=== PATIENT | female | born 1930 | race Caucasian/White ===

== ENCOUNTER 2020-05-26 18:11 | Inpatient (IN) | payer MEDICARE, MEDICAID ==
[~2020-05-26] VITALS: Ht 152.4 cm; Wt 52.2 kg
[2020-05-26 19:18] LABS: BASOPHILS % 1.1 % (0.0-2.0); EOSINOPHILS % 1.4 % (0.0-5.0); HEMATOCRIT. 39.3 % (36.0-48.0); HEMOGLOBIN. 12.8 g/dL (12.0-16.0); LYMPHOCYTES % 15.3 % (20.0-50.0); MEAN CORPUSCULAR HEMOGLOBIN 29.3 pg (28.0-32.0); MEAN CORPUSCULAR VOLUME 89.7 fL (81.0-99.0); MEAN PLATELET VOLUME 8.1 fl (7.4-10.4); MONOCYTES % 9.4 % (2.0-8.0); NEUTROPHILS % 72.8 % (40.0-76.0); PLATELET 329 x1000/uL (130-400); RED BLOOD CELL COUNT 4.39 mill/uL (4.2-5.4); RED CELL DISTRIBUTION WIDTH 16.8 % (11.6-14.6)
[2020-05-26 19:21] LABS: CLARITY URINE CLOUDY (CLEAR); COLOR URINE YELLOW (YELLOW); KETONES URINE NEGATIVE (NEGATIVE); LEUKOCYTE ESTERASE URINE 1+ (NEGATIVE); NITRITE URINE NEGATIVE (NEGATIVE); OCCULT BLOOD URINE 2+ (NEGATIVE); PH URINE 5.5 (4.5-8.0); PROTEIN URINE NEGATIVE (NEGATIVE); SPECIFIC GRAVITY URINE 1.017 (1.005-1.030)
[2020-05-26 19:24] LABS: CHLORIDE 99 mEq/L (98-107)
[2020-05-26 19:26] LABS: INR 1.1; PROTHROMBIN TIME 11.9 sec (9.6-11.0)
[2020-05-26] MEDS ORDERED: SULFAMETHOXAZOLE/TRIMETHOPRIM 800/160MG TABLET PO NR (20:00)
[2020-05-26] MEDS ORDERED: ACETAMINOPHEN 325MG TABLET PO PRN (20:45)
[2020-05-26] MEDS ORDERED: IPRATROPIUM/ALBUTEROL 0.5-3(2.5)MG/3ML NEB NEB PRN (20:45)
[2020-05-26] MEDS ORDERED: SODIUM CHLORIDE 0.9% 500 ML IV ONE (20:45)
[2020-05-26] MEDS ORDERED: ALPRAZOLAM 0.25 MG TABLET PO PRN (20:45)
[2020-05-26] MEDS ORDERED: DIPHENHYDRAMINE 50MG/ML VIAL IV PRN (20:45)
[2020-05-26] MEDS ORDERED: CLONIDINE 0.1MG TABLET PO PRN (20:45)
[2020-05-26] MEDS ORDERED: DEXTROSE 50% WATER 50ML SYRINGE IV PRN ×2 (20:45→21:00)
[2020-05-26] MEDS ORDERED: ONDANSETRON HCL 4MG/2ML INJ IV PRN (20:45)
[2020-05-26] MEDS ORDERED: LEVOFLOXACIN 500MG PREMIX 100 ML IV NR (21:00)
[2020-05-26] MEDS: METOPROLOL TARTRATE 25MG TABLET PO SCH (21:00)
[2020-05-26] MEDS ORDERED: BLOOD SUGAR DIAGNOSTIC STRIP TEST SCH (21:00)
[2020-05-26] MEDS: AMLODIPINE 2.5MG TABLET PO SCH (21:30)
[2020-05-26] MEDS: BLOOD SUGAR DIAGNOSTIC STRIP TEST SCH (22:03)
[2020-05-26] MEDS: ENOXAPARIN 30MG/0.3ML SYR SUBCUT SCH (22:10)
[2020-05-26] MEDS: INSULIN LISPRO 100 UNITS/ML SUBCUT SCH (22:10)
[2020-05-27] VITALS (7 sets, daily range): BP systolic 109–147; BP diastolic 36–61
[2020-05-27] MEDS: ACETAMINOPHEN 325MG TABLET PO PRN ×2 (06:46→21:05)
[2020-05-27] MEDS: GLIPIZIDE 5MG TABLET PO SCH ×2 (07:00→08:56)
[2020-05-27] MEDS: LEVOTHYROXINE SODIUM 100MCG TABLET PO SCH ×2 (07:00→08:56)
[2020-05-27] MEDS: BLOOD SUGAR DIAGNOSTIC STRIP TEST SCH ×4 (07:04→21:17)
[2020-05-27] MEDS: CLOPIDOGREL 75MG TABLET PO SCH (08:55)
[2020-05-27] MEDS: AMLODIPINE 2.5MG TABLET PO SCH ×2 (08:55→21:00)
[2020-05-27] MEDS: CHOLECALCIFEROL (D3) 1000 UNIT TABLET PO SCH (08:55)
[2020-05-27] MEDS: FOLIC ACID 1MG TABLET PO SCH (08:56)
[2020-05-27] MEDS: INSULIN LISPRO 100 UNITS/ML SUBCUT SCH ×4 (08:59→21:00)
[2020-05-27] MEDS: METOPROLOL TARTRATE 25MG TABLET PO SCH ×2 (09:00→21:00)
[2020-05-27] MEDS: DONEPEZIL HCL 10MG TABLET PO SCH (09:00)
[2020-05-27] MEDS: LEVOFLOXACIN 250MG PREMIX 50 ML IV SCH (21:11)
[2020-05-27] MEDS: ENOXAPARIN 30MG/0.3ML SYR SUBCUT SCH (21:24)
[2020-05-28] VITALS: BP 131/98
[2020-05-28 04:00] VITALS: BP 155/43
[2020-05-28] MEDS: BLOOD SUGAR DIAGNOSTIC STRIP TEST SCH ×4 (07:20→20:46)
[2020-05-28 08:00] VITALS: BP 143/43
[2020-05-28] MEDS: METOPROLOL TARTRATE 25MG TABLET PO SCH ×2 (09:00→20:37)
[2020-05-28] MEDS: CHOLECALCIFEROL (D3) 1000 UNIT TABLET PO SCH (09:44)
[2020-05-28] MEDS: AMLODIPINE 2.5MG TABLET PO SCH ×2 (09:45→20:36)
[2020-05-28] MEDS: FOLIC ACID 1MG TABLET PO SCH (09:45)
[2020-05-28] MEDS: DONEPEZIL HCL 10MG TABLET PO SCH (09:45)
[2020-05-28] MEDS: CLOPIDOGREL 75MG TABLET PO SCH (09:45)
[2020-05-28] MEDS: INSULIN LISPRO 100 UNITS/ML SUBCUT SCH ×4 (09:57→20:48)
[2020-05-28 12:00] VITALS: BP 172/43
[2020-05-28 16:00] VITALS: BP 134/31
[2020-05-28 20:00] VITALS: BP 140/39
[2020-05-28] MEDS: ENOXAPARIN 30MG/0.3ML SYR SUBCUT SCH (20:37)
[2020-05-28] MEDS: LEVOFLOXACIN 250MG PREMIX 50 ML IV SCH (23:08)
[2020-05-29] VITALS: BP 145/29
[2020-05-29 04:00] VITALS: BP 135/38
[2020-05-29 05:49] LABS: BASOPHILS % 2.6 % (0.0-2.0); EOSINOPHILS % 1.8 % (0.0-5.0); HEMATOCRIT. 39.2 % (36.0-48.0); HEMOGLOBIN. 13.2 g/dL (12.0-16.0); LYMPHOCYTES % 16.7 % (20.0-50.0); MEAN CORPUSCULAR HEMOGLOBIN 29.9 pg (28.0-32.0); MEAN CORPUSCULAR VOLUME 88.8 fL (81.0-99.0); MEAN PLATELET VOLUME 8.7 fl (7.4-10.4); MONOCYTES % 9.7 % (2.0-8.0); NEUTROPHILS % 69.2 % (40.0-76.0); PLATELET 292 x1000/uL (130-400); RED BLOOD CELL COUNT 4.41 mill/uL (4.2-5.4); RED CELL DISTRIBUTION WIDTH 16.9 % (11.6-14.6)
[2020-05-29 05:56] LABS: CHLORIDE 100 mEq/L (98-107)
[2020-05-29 06:07] LABS: PHOSPHORUS 2.8 mg/dL (2.5-4.9)
[2020-05-29] MEDS: BLOOD SUGAR DIAGNOSTIC STRIP TEST SCH ×4 (07:20→20:36)
[2020-05-29 08:00] VITALS: BP 115/55
[2020-05-29] MEDS: GLIPIZIDE 5MG TABLET PO SCH (08:29)
[2020-05-29] MEDS: DONEPEZIL HCL 10MG TABLET PO SCH (08:29)
[2020-05-29] MEDS: FOLIC ACID 1MG TABLET PO SCH (08:29)
[2020-05-29] MEDS: INSULIN LISPRO 100 UNITS/ML SUBCUT SCH ×4 (08:29→20:41)
[2020-05-29] MEDS: CHOLECALCIFEROL (D3) 1000 UNIT TABLET PO SCH (08:29)
[2020-05-29] MEDS: LEVOTHYROXINE SODIUM 125MCG TABLET PO SCH (08:31)
[2020-05-29] MEDS: AMLODIPINE 2.5MG TABLET PO SCH ×2 (08:31→20:35)
[2020-05-29] MEDS: METOPROLOL TARTRATE 25MG TABLET PO SCH ×2 (08:31→20:31)
[2020-05-29] MEDS: CLOPIDOGREL 75MG TABLET PO SCH (08:31)
[2020-05-29 12:00] VITALS: BP 117/33
[2020-05-29] MEDS ORDERED: POTASSIUM CHLORIDE INJ 40 MEQ in DEXT 5% WATER 250 ML IV SCH (15:00)
[2020-05-29 16:00] VITALS: BP 104/59
[2020-05-29 20:00] VITALS: BP 103/23
[2020-05-29] MEDS: LEVOFLOXACIN 250MG PREMIX 50 ML IV SCH (20:31)
[2020-05-29] MEDS: MEMANTINE HCL 5MG TABLET PO SCH (20:35)
[2020-05-29] MEDS: ENOXAPARIN 30MG/0.3ML SYR SUBCUT SCH (20:36)
[2020-05-30] VITALS: BP 130/44
[2020-05-30 04:00] VITALS: BP 122/26
[2020-05-30] MEDS: GLIPIZIDE 5MG TABLET PO SCH (06:23)
[2020-05-30] MEDS: BLOOD SUGAR DIAGNOSTIC STRIP TEST SCH ×4 (06:23→20:57)
[2020-05-30] MEDS: LEVOTHYROXINE SODIUM 125MCG TABLET PO SCH (06:23)
[2020-05-30 08:00] VITALS: BP 120/30
[2020-05-30] MEDS: AMLODIPINE 2.5MG TABLET PO SCH ×2 (08:48→20:56)
[2020-05-30] MEDS: FOLIC ACID 1MG TABLET PO SCH (08:48)
[2020-05-30] MEDS: CHOLECALCIFEROL (D3) 1000 UNIT TABLET PO SCH (08:48)
[2020-05-30] MEDS: CLOPIDOGREL 75MG TABLET PO SCH (08:48)
[2020-05-30] MEDS: MEMANTINE HCL 5MG TABLET PO SCH ×2 (08:49→20:56)
[2020-05-30] MEDS: METOPROLOL TARTRATE 25MG TABLET PO SCH ×2 (08:49→20:56)
[2020-05-30] MEDS: DONEPEZIL HCL 10MG TABLET PO SCH (08:49)
[2020-05-30] MEDS: INSULIN LISPRO 100 UNITS/ML SUBCUT SCH ×4 (09:02→21:00)
[2020-05-30 12:00] VITALS: BP 136/37
[2020-05-30 16:00] VITALS: BP 145/35
[2020-05-30] MEDS: ACETAMINOPHEN 325MG TABLET PO PRN ×2 (17:47→21:48)
[2020-05-30 20:00] VITALS: BP 134/51
[2020-05-30] MEDS: LEVOFLOXACIN 250MG PREMIX 50 ML IV SCH (20:39)
[2020-05-30] MEDS: ENOXAPARIN 30MG/0.3ML SYR SUBCUT SCH (20:57)
[2020-05-31] VITALS (7 sets, daily range): BP systolic 71–133; BP diastolic 30–86
[2020-05-31] MEDS: GLIPIZIDE 5MG TABLET PO SCH (06:27)
[2020-05-31] MEDS: BLOOD SUGAR DIAGNOSTIC STRIP TEST SCH ×3 (06:27→17:20)
[2020-05-31] MEDS: LEVOTHYROXINE SODIUM 125MCG TABLET PO SCH (06:27)
[2020-05-31] MEDS: METOPROLOL TARTRATE 25MG TABLET PO SCH (09:00)
[2020-05-31] MEDS: AMLODIPINE 2.5MG TABLET PO SCH (09:00)
[2020-05-31] MEDS: DONEPEZIL HCL 10MG TABLET PO SCH (09:22)
[2020-05-31] MEDS: CHOLECALCIFEROL (D3) 1000 UNIT TABLET PO SCH (09:22)
[2020-05-31] MEDS: FOLIC ACID 1MG TABLET PO SCH (09:22)
[2020-05-31] MEDS: MEMANTINE HCL 5MG TABLET PO SCH (09:22)
[2020-05-31] MEDS: CLOPIDOGREL 75MG TABLET PO SCH (09:23)
[2020-05-31] MEDS: INSULIN LISPRO 100 UNITS/ML SUBCUT SCH ×3 (09:24→18:24)
[2020-05-31] MEDS ORDERED: LEVO100T9 MT (13:10)
[2020-05-31] MEDS ORDERED: DONE10TA11 MT (13:10)
[2020-05-31] MEDS ORDERED: POTA8CAP20 PO (13:10)
[2020-05-31] MEDS ORDERED: FURO20TA4 MT (13:10)
[2020-05-31] MEDS ORDERED: METO-385 PO (13:10)
[2020-05-31] MEDS ORDERED: SACU1TAB7 MT (13:10)
[2020-05-31] MEDS ORDERED: AMLO10TA80 MT (13:10)
[2020-05-31] MEDS ORDERED: ALPR-339 MT (13:10)
[2020-05-31] MEDS ORDERED: APIX5TAB MT (13:10)
[2020-05-31] MEDS ORDERED: GLIP10TA10 MT (13:10)
[2020-05-31] MEDS ORDERED: CLOP75TA33 MT (13:10)
[2020-05-31] MEDS ORDERED: ALEN70SO3 PO (13:10)
[2020-05-31] MEDS ORDERED: FOLI-43 MT (13:10)
== END 2020-05-31 21:30 | disposition home or self-care (01) | DRG 689 ==
LOC: ER 18:11 → 6EST 20:55 → EDBEDREQTM 21:00 → EDBEDREQ 21:00 → ENRESERV 22:25 → 6EST 05-27 02:31
PROVIDERS: ADMIT Internal Medicine; ATTEND Internal Medicine
DX: N39.0 Urinary tract infection, site not specified (principal); G93.41 Metabolic encephalopathy; F02.81 Dementia in other diseases classified elsewhere, unspecified severity, with behavioral disturbance; E11.9 Type 2 diabetes mellitus without complications; I11.0 Hypertensive heart disease with heart failure; I48.91 Unspecified atrial fibrillation; E03.9 Hypothyroidism, unspecified; E78.00 Pure hypercholesterolemia, unspecified; I25.10 Atherosclerotic heart disease of native coronary artery without angina pectoris; M81.0 Age-related osteoporosis without current pathological fracture; J44.9 Chronic obstructive pulmonary disease, unspecified; I50.9 Heart failure, unspecified; R62.7 Adult failure to thrive; R15.9 Full incontinence of feces; R32 Unspecified urinary incontinence; R26.9 Unspecified abnormalities of gait and mobility; Z95.2 Presence of prosthetic heart valve; I25.2 Old myocardial infarction; Z85.3 Personal history of malignant neoplasm of breast; Z88.5 Allergy status to narcotic agent; Z88.0 Allergy status to penicillin; Z90.12 Acquired absence of left breast and nipple; Z95.0 Presence of cardiac pacemaker; Z68.22 Body mass index [BMI] 22.0-22.9, adult; Z86.73 Personal history of transient ischemic attack (TIA), and cerebral infarction without residual deficits; G30.9 Alzheimer's disease, unspecified
CPT/HCPCS: 36415; 71045; 80053; 81003; 82962; 83036; 83735; 84100; 84443; 85025; 93005; 97162; 99285; J1200; J1650; J1815; J1956; J3480; J7060